=== PATIENT | male | born 1985 | race Caucasian/White ===

== ENCOUNTER 2021-03-19 11:52 | Emergency (ER) | payer OTHER ==
[~2021-03-19] VITALS: Ht 188 cm; Wt 97.5 kg
[2021-03-19] MEDS ORDERED: SODIUM CHLORIDE 0.9% 1,000 ML IVB ONE (13:45)
[2021-03-19 16:59] LABS: Basophils # (auto) 0 10 ^3/uL (0-0.2); Basophils % (auto) 0.2 % (0.0-2.0); Eosinophils # (auto) 0 10 ^3/uL (0-0.8); Hematocrit 44.9 % (41.0-53.0); Hemoglobin 15.1 g/dL (13.5-17.5); Lymphocytes # (auto) 0.7 10 ^3/uL (0.4-5.4); Lymphocytes % (auto) 5.6 % (10.0-50.0); Mean Corpuscular Hemoglobin 29.6 pg (28.0-32.0); Mean Corpuscular Hgb Conc. 33.7 g/dL (32.0-36.0); Mean Corpuscular Volume 87.6 fL (80.0-100.0); Monocytes # (auto) 0.8 10 ^3/uL (0-1.3); Monocytes % (auto) 5.9 % (0.0-12.0); Neutrophils # (auto) 11.5 10 ^3/uL (1.6-8.6); Neutrophils % (auto) 88.3 % (37.0-80.0); Red Blood Cells 5.12 10^6/uL (4.5-5.90); Red Cell Distribution Width 13.3 % (11.8-14.3)
[2021-03-19 17:21] LABS: Albumin 4.8 g/dL (3.4-5.0); Calcium 9.6 mg/dL (8.5-10.1); Magnesium 2.4 mg/dL (1.6-2.6)
[2021-03-19 17:25] LABS: BUN/Creatinine Ratio 11.6; Bilirubin, Total 0.8 mg/dL (0.2-1.0); Total Protein 8.9 g/dL (6.4-8.2)
[2021-03-20] MEDS ORDERED: ONDANSETRON HCL 4 MG/2 ML VIAL ONE (01:06)
[2021-03-20] MEDS ORDERED: ONDANSETRON ODT 4 MG TAB PO ONE (01:15)
[2021-03-20] MEDS ORDERED: SODIUM CHLORIDE 0.9% 1,000 ML IV ONE (01:15)
[2021-03-20] MEDS ORDERED: ONDANSETRON HCL 4 MG/2 ML VIAL IV ONE (01:30)
[2021-03-20 04:19] VITALS: BP 140/76
== END 2021-03-20 03:32 | disposition home or self-care (01) ==
LOC: ER 11:52 → EDBD 11:52 → ER 03-20 03:32
DX: F15.23 Other stimulant dependence with withdrawal (principal); F11.23 Opioid dependence with withdrawal
CPT/HCPCS: 36415; 71045; 80053; 83735; 85025; 93005; 96361; 96374; 99285; J2405